=== PATIENT | female | born 1980 | race Caucasian/White ===

== ENCOUNTER 2017-10-21 22:02 | Emergency (ER) | payer MEDICAID ==
[~2017-10-21] VITALS: Ht 167.6 cm; Wt 99.8 kg
[~2017-10-21 22:02] MED LIST: LORA-259 PO
[2017-10-21 22:05] VITALS: BP_SYST 148
[2017-10-21] MEDS ORDERED: IBUPROFEN 800 MG TABLET PO ONE (23:30)
[2017-10-21] MEDS ORDERED: LIDOCAINE VISCOUS 2%, 15 ML UDC MM ONE (23:30)
[2017-10-21] MEDS ORDERED: AZITHROMYCIN 250 MG TABLET PO ONE (23:30)
[2017-10-22 00:05] VITALS: BP_SYST 150
== END 2017-10-22 00:05 | disposition home or self-care (01) ==
LOC: SED 22:02
DX: K04.7 Periapical abscess without sinus (principal); F41.9 Anxiety disorder, unspecified; Z88.1 Allergy status to other antibiotic agents; Z98.51 Tubal ligation status
CPT/HCPCS: 99283; J2001; Q0144

== ENCOUNTER 2018-08-01 14:01 | Emergency (ER) | payer MEDICAID ==
[~2018-08-01] VITALS: Ht 167.6 cm; Wt 95.3 kg
[2018-08-01 14:14] VITALS: BP_SYST 150
[2018-08-01] MEDS ORDERED: KETOROLAC TROMETHAMINE 60 MG/2 ML VIAL IM ONE (14:30)
[2018-08-01 15:30] VITALS: BP_SYST 120
== END 2018-08-01 15:33 | disposition home or self-care (01) ==
LOC: SED 14:01
DX: S16.1XXA Strain of muscle, fascia and tendon at neck level, initial encounter (principal); S39.012A Strain of muscle, fascia and tendon of lower back, initial encounter; S50.02XA Contusion of left elbow, initial encounter; S80.02XA Contusion of left knee, initial encounter; F17.200 Nicotine dependence, unspecified, uncomplicated; Z88.1 Allergy status to other antibiotic agents; W18.39XA Other fall on same level, initial encounter; Y93.89 Activity, other specified; Y92.89 Other specified places as the place of occurrence of the external cause; Y99.8 Other external cause status
CPT/HCPCS: 73070; 73560; 96372; 99283; J1885